=== PATIENT | female | born 1940 | race Caucasian/White ===

== ENCOUNTER 2023-06-12 09:44 | Emergency (ER) | payer MEDICAID, MEDICARE ==
[~2023-06-12] VITALS: Ht 152.4 cm; Wt 54.4 kg
[2023-06-12 09:51] VITALS: BP 201/82; PULSE 94; RESP 21; TEMP 98.4; O2SAT 97
[2023-06-12] MEDS ORDERED: ALBUTEROL HFA MDI 90 MCG/ACTUATION 8 GM INH ONE (10:05)
[2023-06-12] MEDS ORDERED: BENAZEPRIL 20 MG TAB PO SCH (10:05)
[2023-06-12] MEDS ORDERED: predniSONE 20 MG TAB PO ONE (10:05)
[2023-06-12 10:11] VITALS: O2SAT 95
[2023-06-12 10:16] VITALS: PULSE 94; RESP 16; O2SAT 96
[2023-06-12 10:25] VITALS: BP 201/63; PULSE 86; RESP 16; TEMP 98.4
[2023-06-12 10:49] VITALS: O2SAT 95
[2023-06-12 10:56] LABS: FLU A ANTIGEN negative (NEGATIVE); FLU B ANTIGEN negative (NEGATIVE)
[2023-06-12] MEDS ORDERED: ALBU0.0912 IH (11:25)
[2023-06-12] MEDS ORDERED: PRED20TA5 PO (11:25)
== END 2023-06-12 11:35 | disposition home or self-care (01) ==
LOC: MED 09:44
DX: B34.9 Viral infection, unspecified (principal); Z20.822 Contact with and (suspected) exposure to COVID-19; J45.901 Unspecified asthma with (acute) exacerbation; I10 Essential (primary) hypertension; E03.9 Hypothyroidism, unspecified; Z79.899 Other long term (current) drug therapy; Z88.2 Allergy status to sulfonamides; Z90.49 Acquired absence of other specified parts of digestive tract
CPT/HCPCS: 71045; 87426; 87804; 93005; 94640; 99285; J7512; Q0092